=== PATIENT | female | born 1995 | race Two or more races ===

== ENCOUNTER 2023-02-15 06:52 | Emergency (ER) | payer MEDICAID, OTHER ==
[~2023-02-15] VITALS: Ht 157.5 cm; Wt 95.0 kg
[2023-02-15] MEDS ORDERED: MAALOX PLUS or MAALOX 30 ML PO ONE (07:30)
[2023-02-15] MEDS ORDERED: ONDANSETRON ODT 4 MG TAB PO ONE (07:30)
[2023-02-15] MEDS ORDERED: FAMOTIDINE 20 MG TAB PO ONE (07:30)
[2023-02-15 07:47] LABS: Basophils # (auto) 0.1 10 ^3/uL (0-0.2); Basophils % (auto) 0.6 % (0.0-2.0); Eosinophils # (auto) 0.1 10 ^3/uL (0-0.8); Eosinophils % (auto) 0.9 % (0.0-7.0); Hematocrit 40.5 % (36.0-46.0); Hemoglobin 13.7 g/dL (12.2-16.2); Lymphocytes # (auto) 1.7 10 ^3/uL (0.4-5.4); Lymphocytes % (auto) 18.1 % (10.0-50.0); Mean Corpuscular Hemoglobin 27.3 pg (28.0-32.0); Mean Corpuscular Hgb Conc. 33.7 g/dL (32.0-36.0); Monocytes # (auto) 0.5 10 ^3/uL (0-1.3); Monocytes % (auto) 5.7 % (0.0-12.0); Neutrophils # (auto) 7.1 10 ^3/uL (1.6-8.6); Neutrophils % (auto) 74.7 % (37.0-80.0); Nucleated Red Blood Cells % 0.1 %; Red Cell Distribution Width 14.9 % (11.8-14.3); White Blood Cell 9.5 10^3/uL (4.4-10.8)
[2023-02-15] MEDS ORDERED: ONDANSETRON HCL 4 MG/2 ML VIAL IV ONE (08:45)
[2023-02-15] MEDS ORDERED: LACTATED RINGER'S 1,000 ML IV ONE (08:45)
[2023-02-15] MEDS ORDERED: FAMOTIDINE (10MG/ML) 2ML VL IV ONE (08:45)
[2023-02-15 09:02] LABS: Albumin 3.2 g/dL (3.4-5.0); Calcium 8.8 mg/dL (8.5-10.1); Magnesium 1.7 mg/dL (1.6-2.6)
[2023-02-15 09:04] LABS: BUN/Creatinine Ratio 15.8 (10.0-20.0); Potassium 3.9 mmol/L (3.5-5.1)
[2023-02-15 09:07] LABS: Bilirubin, Total 0.4 mg/dL (0.2-1.0); Total Protein 7.8 g/dL (6.4-8.2)
[2023-02-15 11:01] LABS: Urine Bacteria FEW /hpf (None Seen); Urine Blood 1+ /uL (Negative); Urine Mucus FEW (None Seen); Urine Specific Gravity 1.044 (1.001-1.035); Urine WBC 2 /hpf (0 - 5)
[2023-02-15] MEDS ORDERED: ONDA-144 PO (11:44)
[2023-02-15] MEDS ORDERED: OMEP-434 PO (11:44)
[2023-02-15 12:26] VITALS: BP 128/65
== END 2023-02-15 11:45 | disposition home or self-care (01) ==
LOC: ER 06:52 → EDBD 06:52 → ER 11:45
DX: K21.9 Gastro-esophageal reflux disease without esophagitis (principal); K52.9 Noninfective gastroenteritis and colitis, unspecified; R10.2 Pelvic and perineal pain; Z88.6 Allergy status to analgesic agent
CPT/HCPCS: 36415; 80053; 81001; 81025; 83690; 83735; 84702; 85025; 93005; 96361; 96374; 96375; 99284; J2405; J3490; J7120